=== PATIENT | male | born 2005 | race Two or more races ===

== ENCOUNTER 2024-10-24 18:23 | Inpatient (IN) | payer MEDICAID ==
[~2024-10-24] VITALS: Ht 177.8 cm; Wt 66.5 kg
--- NOTE | 2024-10-24 19:39 | ED.PDOC ---
Musculoskeletal HPI Comments 19 year old male presents to ER with complaints of left elbow pain x 3 days. Patient reports that he was diagnosed with a left elbow fracture at a Hospital in [place] 3 days ago and presents back to ER because he "doesn't have insurance" and isn't able to follow-up with an orthopedic doctor. He states the left elbow fracture occurred from falling on his left elbow while skate boarding and reports numbness/tingling to all fingers of left hand along with swelling to left elbow that's been ongoing x 3 days. He rates his current pain a 7/10 to left elbow with radiation towards his left hand. Patient presents to ER with a posterior long-arm splint to left arm and left arm sling applied. Denies any further symptoms/complaints Chief Complaint: Upper Extremity Time Seen by MD: 18:42 Primary Care Provider: NONE Reviewed Notes: Nurses Notes, Medications, Allergies Allergies: Coded Allergies: NO KNOWN ALLERGIES (Unverified , 10/24/24) Information Source: Patient Mode of Arrival: Ambulatory Past Medical History PAST MEDICAL HISTORY: Denies Surgical History: Denies all surgeries Family History Family History: Unknown Social History Smoker: Non-Smoker Alcohol: Denies ETOH Use Drugs: Denies Drug Use Lives In: Home Constitutional: denies: chills, diaphoresis, fatigue, fever, malaise, sweats, weakness, others EENTM: denies: blurred vision, double vision, ear bleeding, ear discharge, ear drainage, ear pain, ear ringing, eye pain, eye redness, hearing loss, mouth pain, mouth swelling, nasal discharge, nose bleeding, nose congestion, nose pain, photophobia, tearing, throat pain, throat swelling, voice changes, others Respiratory: denies: cough, hemoptysis, orthopnea, SOB at rest, shortness of breath, SOB with excertion, stridor, wheezing, others Cardiovascular: denies: chest pain, dizzy spells, diaphoresis, Dyspnea on exertion, edema, irregular heart beat, left arm pain, lightheadedness, palpitations, PND, syncope, others Gastrointestinal: denies: abdomen distended, abdominal pain, blood streaked bowels, constipated, diarrhea, dysphagia, difficulty swallowing, hematemesis, melena, nausea, poor appetite, poor fluid intake, rectal bleeding, rectal pain, vomiting, others Genitourinary: denies: burning, dysuria, flank pain, frequency, hematuria, incontinence, penile discharge, penile sore, pain, testicle pain, testicle swelling, urgency, others Neurological: reports: others (As stated in HPI) Musculoskeletal: reports: others (As stated in HPI) Integumetry: reports: others (As stated in HPI) Allergic/Immunocompromised: denies: Difficulty Healing, Frequent Infections, Hives, Itching, others Hematologic/Lymphatic: denies: anemia, blood clots, easy bleeding, easy bruising, swollen glands, others Endocrine: denies: excessive hunger, excessive sweating, excessive thirst, excessive urination, flushing, intolerance to cold, intolerance to heat, unexplained weight gain, unexplained weight loss, others Psychiatric: denies: anxiety, bipolar disorder, depression, hopeless, panic disorder, schizophrenia, sleepless, suicidal, others Physical Exam General Appearance: No Apparent Distress HEENT: PERRL/EOMI Neck: Full Range of Motion, Non-Tender, Normal Respiratory: Chest Non-Tender, Lungs Clear, No Accessory Muscle Use, No Respiratory Distress, Normal Breath Sounds Cardiovascular: No Murmur, No Gallop, Regular Rate/Rhythm Breast Exam: Deferred Gastrointestinal: NOT DONE Genitalia: Deferred Pelvic: Deferred Rectal: Deferred Extremities: Decreased range of motion (Left elbow), Normal capillary refill Musculoskeletal : Extremity Location: Elbow (TTP/moderate swelling to left elbow noted.) Neurologic: Alert, No Motor Deficits, Normal Affect, Normal Mood, No Sensory Deficits Cerebellar Function: Normal Reflexes: Normal Skin: Dry, Normal Color, Warm Peripheral Pulses: 2+ Radial (R), 2+ Radial (L), 2+ Brachial (R), 2+ Brachial (L) Lymphatic: No Adenopathy Was a procedure done? Was a procedure done?: No Sedation Sedation?: No Differential Diagnosis EXT Differential Diagnosis: Dislocation, Laceration, Neurovascular injury X-Ray, Labs, Meds, VS Vital Signs Date Time Temp Pulse Resp B/P (MAP) Pulse Ox O2 Delivery O2 Flow Rate FiO2 10/24/24 19:22 Room Air* 0 21 10/24/24 18:28 98.0 105 18 128/77 (94) 97 98.0 Lab Test 10/24/24 20:58 Range/Units White Blood Count 9.8 4.4-10.8 10^3/uL Red Blood Count 4.54 4.5-5.90 10^6/uL Hemoglobin 14.1 13.5-17.5 g/dL Hematocrit 40.8 L 41.0-53.0 % Mean Corpuscular Volume 90.0 80.0-100.0 fL Mean Corpuscular Hemoglobin 31.2 28.0-32.0 pg Mean Corpuscular Hemoglobin Concent 34.6 32.0-36.0 g/dL Red Cell Distribution Width 12.7 11.8-14.3 % Platelet Count 273 140-450 10^3/uL Mean Platelet Volume 7.5 6.9-10.8 fL Neutrophils (%) (Auto) 73.4 37.0-80.0 % Lymphocytes (%) (Auto) 18.0 10.0-50.0 % Monocytes (%) (Auto) 7.4 0.0-12.0 % Eosinophils (%) (Auto) 0.6 0.0-7.0 % Basophils (%) (Auto) 0.6 0.0-2.0 % Neutrophils # (Auto) 7.2 1.6-8.6 10 ^3/uL Lymphocytes # (Auto) 1.8 0.4-5.4 10 ^3/uL Monocytes # (Auto) 0.7 0-1.3 10 ^3/uL Eosinophils # (Auto) 0.1 0-0.8 10 ^3/uL Basophils # (Auto) 0.1 0-0.2 10 ^3/uL Nucleated Red Blood Cells 0.0 % Prothrombin Time 10.6 9.3-11.8 sec Prothrombin Time INR 1.00 0.9-1.15 Activated Partial Thromboplast Time 27.1 24.5-34.5 SEC Sodium Level 141 136-145 mmol/L Potassium Level 3.9 3.5-5.1 mmol/L Chloride Level 103 98-107 mmol/L Carbon Dioxide Level 28 20-31 mmol/L Anion Gap 10 5-15 Blood Urea Nitrogen 14 9-23 mg/dL Creatinine 1.03 0.700-1.30 mg/dL Glomerular Filtration Rate Calc 107 >90 mL/min BUN/Creatinine Ratio 13.6 10.0-20.0 Serum Glucose 94 74-106 mg/dL Calcium Level 10.5 H 8.7-10.4 mg/dL Total Bilirubin 0.6 0.2-1.0 mg/dL Aspartate Amino Transferase (AST) 20 13-40 U/L Alanine Aminotransferase (ALT) 16 7-40 U/L Alkaline Phosphatase 58 46-116 U/L Total Protein 7.6 5.7-8.2 g/dL Albumin 5.1 H 3.2-4.8 g/dL Plasma/Serum Blood Alcohol 3.4 <10 mg/dL PATIENT: RAFY CARRASCO VACCT: [id number]: [id number] : 2005 LOC: ER ROOM / BED: / AGE / SEX: 19 / M ADM STATUS: REG ER SERVICE 25 ORDERING PHYSICIAN: CARLOS RAMIREZ PROCEDURE(s): LELB3 - L ELBOW 3 VIEW XRAY REASON: left elbow pain, hx recent left elbow fracture ORDER NUMBER(s): [id number], ACCESSION NUMBER(s): [id number] EXAM: XY L ELBOW 3 VIEW XRAY REASON FOR EXAM: left elbow pain, hx recent left elbow fracture TECHNIQUE: 3 views of the left elbow are submitted for review. COMPARISON: None FINDINGS: The bones demonstrate grossly normal mineralization. There is acute, mildly-comminuted fracture through the olecranon process with approximately 2.6 cm distraction of the fracture fragments. Evaluation for joint effusion is degraded by the obliquity of the lateral view. There is severe soft tissue swelling about the elbow. IMPRESSION: Acute, mildly comminuted fracture through the olecranon process with approximately 2.6 cm distraction. ATED BY: GABRIEL DAVE MD DICTATED DATE/TIME: 10/24/242031 SIGNED BY: GABRIEL DAVE MD SIGNED DATE/TIME: 10/24/242031 CC: Left elbow x-ray reviewed Patient in left posterior long arm splint/left arm sling Patient neurovascularly intact with pain controlled Case and x-ray imaging reviewed and discussed with orthopedic Dr. Cedillo who states to admit patient, keep him NPO and plan on surgery tomorrow Pre-op labs/imaging ordered Patient verbalized understanding and agreeable with current plan of care Patient admitted to hospitalist for left elbow fracture Images Reviewed?: Images reviewed and evaluated by me Time of 1ST Reevaluation: 18:42 Reevaluation 1ST: N/A Patient Education/Counseling: Diagnosis, Treatment, Prognosis, Need For Follow Up Family Education/Counseling: Diagnosis, Treatment, Prognosis, Need For Follow Up Departure 1 Departure Time of Disposition: 21:02 Impression: Primary Impression: Olecranon fracture Qualified Codes: S52.022A - Displaced fracture of olecranon process without intraarticular extension of left ulna, initial encounter for closed fracture Disposition: 09 ADMITTED INPATIENT Condition: Stable Critical Care Note Critical Care Time?: No Stability Stability form required: No Heart Score Heart Score: Heart Score Response (Comments) Value History N/A 0 EKG N/A 0 Age N/A 0 Risk Factors N/A 0 Troponin N/A 0 Total 0 CARLOS RAMIREZ Oct 24, 2024 19:39
--- NOTE | 2024-10-24 20:34 | DVH ---
EXAM: XY L ELBOW 3 VIEW XRAY REASON FOR EXAM: left elbow pain, hx recent left elbow fracture TECHNIQUE: 3 views of the left elbow are submitted for review. COMPARISON: None FINDINGS: The bones demonstrate grossly normal mineralization. There is acute, mildly-comminuted fra cture through the olecranon process with approximately 2.6 cm distraction of the fracture fragments. Evaluation for joint effusion is degraded by the obliquity of the lateral view. There is severe soft tissue swelling about the elbow. IMPRESSION: Acute, mildly comminuted fracture through the olecranon process with approximately 2.6 cm distraction .
[2024-10-24 21:15] LABS: Hematocrit 40.8 % (41.0-53.0); Hemoglobin 14.1 g/dL (13.5-17.5); Mean Corpuscular Hemoglobin 31.2 pg (28.0-32.0); Mean Corpuscular Volume 90.0 fL (80.0-100.0); Nucleated Red Blood Cells % 0.0 %
[2024-10-24 21:30] LABS: INR 1.0 (0.9-1.15); Partial Thromboplastin Time 27.1 SEC (24.5-34.5); Prothrombin Time 10.6 sec (9.3-11.8)
[2024-10-24 21:31] LABS: Alanine Aminotransferase 16 U/L (7-40); Alkaline Phosphatase 58 U/L (46-116); Anion Gap 10 (5-15); BUN/Creatinine Ratio 13.6 (10.0-20.0); Blood Urea Nitrogen 14 mg/dL (9-23); Carbon Dioxide 28 mmol/L (20-31); Chloride 103 mmol/L (98-107); Glucose 94 mg/dL (74-106); Potassium 3.9 mmol/L (3.5-5.1); Sodium 141 mmol/L (136-145); Total Protein 7.6 g/dL (5.7-8.2)
[2024-10-24 21:32] LABS: Bilirubin, Total 0.6 mg/dL (0.2-1.0)
[2024-10-24 21:34] LABS: Albumin 5.1 g/dL (3.2-4.8); Calcium 10.5 mg/dL (8.7-10.4)
--- NOTE | 2024-10-24 21:37 | DVH ---
CHEST RADIOGRAPH Indication: pre-op Technique: Single frontal view of the chest was obtained COMPARISON: None FINDINGS: Lines and Tubes: None Lungs: Clear Pleura: No effusion. No pneumothorax. Cardiomediastinal contours: Unremarkable Bones: Unremarkable IMPRESSION: 1. No acute disease.
--- NOTE | 2024-10-24 21:58 | DVHHP2 ---
History of Present Illness History of Present Illness Patient is 19 years old male with no significant past medical history came with a complaint of left elbow pain. As per patient he has been having left elbow pain for last 3 days after he had a fall while electronic skateboarding, he bumped on a person and fell down and hurt his left elbow. Following fall he went to [facility] ER and he was discharged with the advice to follow up with the outpatient orthopedic surgeon for further evaluation and care because of insurance issue. As per family and patient he could not go to outpatient orthopedic surgeon as they did not have any insurance at the time. Today patient came with the complaint of ongoing pain in the left elbow, 10/12, constant, increased with movement. Denies any fever, chest pain, shortness of breath. Patient has a posterior long arm splint to the left arm and left arm sling applied. X-ray left elbow revealed- Acute, mildly comminuted fracture through the olecranon process with approximately 2.6 cm distraction. Past Medical History None Past Surgical History No surgical history Past Social History Denies smoking/alcoholism/drug abuse, lives with family Review of Systems Review of Systems Allergy- NKDA Patient was seen today at the bedside. Cardiovascular- deny acute chest pain or shortness of breath or cough or palpitation Respiratory denies cough or short of breath or wheezing Gastrointestinal- denies any rectal bleeding, nausea or vomiting Neurological- denies acute dysarthria, dysphagia, change in vision Psychiatry- denies depression or SI or HI Skin- denies acute rash or purpura Allergies: Coded Allergies: NO KNOWN ALLERGIES (Unverified , 10/24/24) Medications Current Medications Medications Dose Ordered Sig/Cale Route Start Time Stop Time Status Last Admin Dose Admin Sodium Chloride 10 ml Q8HR IV 10/24/24 22:00 UNV Acetaminophen 650 mg Q6HP PRN PO 10/24/24 22:00 UNV Morphine Sulfate 2 mg Q4HPRN PRN IV 10/24/24 22:00 UNV Exam Vital Signs Vital Signs Date Time Temp Pulse Resp B/P (MAP) Pulse Ox O2 Delivery O2 Flow Rate FiO2 10/24/24 19:22 Room Air* 0 21 10/24/24 18:28 98.0 105 18 128/77 (94) 97 98.0 Exam General examination- awake, alert, oriented HEENT- PEERLA, no acute nasal discharge Cardiovascular- S1-S2 audible, rate and rhythm regular, no murmur Respiratory- CTAB, no wheeze or rhonchi Gastrointestinal-nontender, bowel sound+. Nondistended Musculoskeletal-no acute joint swelling or tenderness or redness [id number] splint to left arm, palpable left radial arterial++ Neurological- cranial nerves intact, no acute dysarthria or dysphagia Psychiatry- denies depression or SI or HI Skin- no acute rash or purpura Labs/Xrays Labs Test 10/24/24 20:58 Range/Units White Blood Count 9.8 4.4-10.8 10^3/uL Red Blood Count 4.54 4.5-5.90 10^6/uL Hemoglobin 14.1 13.5-17.5 g/dL Hematocrit 40.8 L 41.0-53.0 % Mean Corpuscular Volume 90.0 80.0-100.0 fL Mean Corpuscular Hemoglobin 31.2 28.0-32.0 pg Mean Corpuscular Hemoglobin Concent 34.6 32.0-36.0 g/dL Red Cell Distribution Width 12.7 11.8-14.3 % Platelet Count 273 140-450 10^3/uL Mean Platelet Volume 7.5 6.9-10.8 fL Neutrophils (%) (Auto) 73.4 37.0-80.0 % Lymphocytes (%) (Auto) 18.0 10.0-50.0 % Monocytes (%) (Auto) 7.4 0.0-12.0 % Eosinophils (%) (Auto) 0.6 0.0-7.0 % Basophils (%) (Auto) 0.6 0.0-2.0 % Neutrophils # (Auto) 7.2 1.6-8.6 10 ^3/uL Lymphocytes # (Auto) 1.8 0.4-5.4 10 ^3/uL Monocytes # (Auto) 0.7 0-1.3 10 ^3/uL Eosinophils # (Auto) 0.1 0-0.8 10 ^3/uL Basophils # (Auto) 0.1 0-0.2 10 ^3/uL Nucleated Red Blood Cells 0.0 % Prothrombin Time 10.6 9.3-11.8 sec Prothrombin Time INR 1.00 0.9-1.15 Activated Partial Thromboplast Time 27.1 24.5-34.5 SEC Sodium Level 141 136-145 mmol/L Potassium Level 3.9 3.5-5.1 mmol/L Chloride Level 103 98-107 mmol/L Carbon Dioxide Level 28 20-31 mmol/L Anion Gap 10 5-15 Blood Urea Nitrogen 14 9-23 mg/dL Creatinine 1.03 0.700-1.30 mg/dL Glomerular Filtration Rate Calc 107 >90 mL/min BUN/Creatinine Ratio 13.6 10.0-20.0 Serum Glucose 94 74-106 mg/dL Calcium Level 10.5 H 8.7-10.4 mg/dL Total Bilirubin 0.6 0.2-1.0 mg/dL Aspartate Amino Transferase (AST) 20 13-40 U/L Alanine Aminotransferase (ALT) 16 7-40 U/L Alkaline Phosphatase 58 46-116 U/L Total Protein 7.6 5.7-8.2 g/dL Albumin 5.1 H 3.2-4.8 g/dL SEPSIS Sepsis Screen Date sepsis recognized/suspect: Oct 24, 2024 Time Sepsis recognized/suspect: 1827 Recent Procedure: No On Antibiotic Therapy: No Respiratory Rate >20: No Heart Rate >90: Yes Temp<36 C (96.8 F) or >38.3 C: No SBP <90 or MAP <65 mmHG: No New Acute Mental Status Change: No Is the patient on CPAP, BIPAP,: No Physician Orders L Elbow 3 View Xray (10/24/24 19:26) Electrocardigram (10/24/24 20:49) Chest Xray 1 View (10/24/24 20:49) Type And Screen (10/24/24 20:49) Npo (Nothing By Mouth) Diet (10/25/24 Breakfast) Admit (10/24/24 21:54) Code Status (10/24/24 21:54) Sodium Chloride Lock (Saline Lock Ns) (10/24/24 22:00) Complete Blood Count (10/25/24 04:00) Comprehensive Metabolic Panel (10/25/24 04:00) Acetaminophen Tablet (Tylenol Tablet) (10/24/24 22:00) Morphine Sulfate Injection (10/24/24 22:00) Notify Of Changes From Base (10/24/24 21:54) Pantoprazole Tablet (Protonix Tablet) (10/24/24 22:00) Pantoprazole Tablet (Protonix Tablet) (10/25/24 06:00) * Orthopedic Consult (10/24/24 21:56) Vital Signs Date Time Temp Pulse Resp B/P (MAP) Pulse Ox O2 Delivery O2 Flow Rate FiO2 10/24/24 19:22 Room Air* 0 21 10/24/24 18:28 98.0 105 18 128/77 (94) 97 98.0 Laboratory Tests Test 10/24/24 20:58 White Blood Count 9.8 10^3/uL (4.4-10.8) Assessment/Plan Assessment/Plan Assessment and plan # Inractable acute left elbow pain due Acute, mildly comminuted fracture through the left olecranon process, status post fall -continue pain medication as prescribed -pending orthopedic consult -on long-arm splint to the left arm and left arm sling # status post fall -continue current management NPO after midnight Goals of care, Code status full code ; discussed with >15 minutes PUD prophylaxis: Pantoprazole DVT prophylaxis: Patient ambulating Plan discussed with Dr. Morillo , nursing staff, Total time spent on patient evaluation, chart review, assessment and plan, discussion discussion >35 minutes Plan discussed with: Patient, Other (Mother, RN) My Orders Orders - JOSE ANTONIO VALENZUELA RESIDENT Procedure Category Date Status Time Admit ADMIT 10/24/24 Transmitted 21:54 Code Status CODE 10/24/24 Transmitted 21:54 Sodium Chloride Lock PHA 10/24/24 Logged (Saline Lock Ns) 22:00 Complete Blood Count LAB 10/25/24 Verified 04:00 Comprehensive LAB 10/25/24 Verified Metabolic Panel 04:00 Acetaminophen Tablet PHA 10/24/24 Logged (Tylenol Tablet) 22:00 Morphine Sulfate PHA 10/24/24 Logged Injection 22:00 Notify Of Changes ZACK 10/24/24 In Process From Base 21:54 Pantoprazole Tablet PHA 10/24/24 Transmitted (Protonix Tablet) 22:00 Pantoprazole Tablet PHA 10/25/24 Transmitted (Protonix Tablet) 06:00 * Orthopedic Consult CONS 10/24/24 Transmitted 21:56 Date of Service: Oct 24, 2024 Billing Provider: CLARE MORILLO MD Common Visit Codes: [id number] INP/OBS CARE (HIGH) Secondary Visit Codes: [id number] CARE PLAN 30 MINUTES JOSE ANTONIO VALENZUELA RESIDENT Oct 24, 2024 21:58
[2024-10-24] MEDS ORDERED: ACETAMINOPHEN 325 MG TAB PO PRN (22:00)
[2024-10-24] MEDS: PANTOPRAZOLE 40 MG TAB PO ONE (23:24)
[2024-10-24] MEDS: SODIUM CHLOR 0.9% PF (SALINE LOCK) 10ML VIAL/SYR IV SCH (23:24)
[2024-10-25] VITALS (7 sets, daily range): BP systolic 110–127; BP diastolic 56–72; PULSE 51–90; RESP 16–18; TEMP 97.1–98.7; O2SAT 96–100
[2024-10-25 03:53] LABS: Hematocrit 37.7 % (41.0-53.0); Hemoglobin 13.5 g/dL (13.5-17.5); Mean Corpuscular Hemoglobin 31.9 pg (28.0-32.0); Mean Corpuscular Volume 89.2 fL (80.0-100.0); Nucleated Red Blood Cells % 0.1 %
[2024-10-25 04:07] LABS: Alanine Aminotransferase 14 U/L (7-40); Albumin 4.6 g/dL (3.2-4.8); Alkaline Phosphatase 54 U/L (46-116); Anion Gap 11 (5-15); BUN/Creatinine Ratio 14.8 (10.0-20.0); Bilirubin, Total 0.5 mg/dL (0.2-1.0); Blood Urea Nitrogen 13 mg/dL (9-23); Calcium 9.9 mg/dL (8.7-10.4); Carbon Dioxide 25 mmol/L (20-31); Chloride 106 mmol/L (98-107); Glucose 102 mg/dL (74-106); Sodium 142 mmol/L (136-145); Total Protein 6.7 g/dL (5.7-8.2)
[2024-10-25 04:08] LABS: Potassium 3.5 mmol/L (3.5-5.1)
[2024-10-25] MEDS: MORPHINE SULFATE INJ 2 MG/ml SYRG IV PRN (04:37)
[2024-10-25] MEDS: SODIUM CHLORIDE 0.9% 1,000 ML IV SCH (05:39)
[2024-10-25] MEDS: PANTOPRAZOLE 40 MG TAB PO SCH (05:40)
--- NOTE | 2024-10-25 16:09 | DVH ---
EXAM: CT CT L ELBOW WO CONTRAST INDICATION: fracture EXAM DATE: 10/25/2024 02:19 PM COMPARISON: None TECHNIQUE: Multiple axial CT images of the left elbow were obtained using bone algorithm. Axial and c oronal reformatting was done. Bone and soft tissue windows were reviewed. Radiation Dose Information: CT Dose: CTDI volume is .1511.15 mGy. Dose-length product is 277.77 mGy*cm Findings/Impression: Moderately displaced comminuted fracture of the olecranon There is no evidence of dislocation, blastic, or lytic lesions. No radiopaque foreign bodies. Moderate soft tissue edema with small joint effusions.
--- NOTE | 2024-10-25 20:06 | DVHINCON2 ---
Consult Note Consult Consult Note reason for Consult: Evaluation and management of a left olecranon fracture following trauma. --- History of Present Illness: 19-year-old male who was admitted through the Emergency Department after sustaining a fall onto his left elbow while skateboarding x approx 4 days ago. Initially seen in [place] and recent followup(yesterday night at [facility]) ,He was evaluated by the ER team and diagnosed with a closed left olecranon process fracture. A posterior splint was placed for immobilization. Orthopedic surgery was consulted for definitive management. During my interview today, the patient reported pain well controlled by hospitalist as inpatient, No splint concerns, no other joint pain reported, Minimal intermittent, mild numbness and tingling radiating down the left upper extremity since his fall with no changes or worsening. He denied any worsening of symptoms, muscle weakness, or pain out of proportion. He lives independently, is alert and oriented 3, and denies any known cardiac or pulmonary history. He reports no routine drug use, though he occasionally vapes. No additional significant medical history was provided. --- Past Medical History: No chronic illnesses reported No current medications No history of anticoagulation use Up to date on tetanus per patient --- Review of Systems: Cardiac/Pulmonary: Denies chest pain, palpitations, shortness of breath Neurologic: Reports intermittent numbness/tingling left upper extremity; denies weakness or radiating pain Musculoskeletal: Left elbow pain only; denies other joint pain General: No fever, chills, or malaise --- Physical Exam: General: Alert, cooperative, in no acute distress Cardiopulmonary: Normal rate and rhythm, clear breath sounds Left Upper Extremity: Shoulder: Full range of motion, no tenderness Elbow: Posterior splint in place, localized tenderness over olecranon, mild swelling noted Wrist: Full range of motion Hand: Able to move all fingers; full motor function Neurovascular: Motor/Sensory: Median, radial, ulnar, PIN (posterior interosseous nerve), and AIN (anterior interosseous nerve) are grossly intact Capillary refill: <2 seconds Sensation: Intact throughout the hand and forearm --- Imaging: X-ray of left elbow: Revealed a displaced fracture of the olecranon process of the ulna. No elbow dislocation or air noted --- Assessment: 1. Displaced Left Olecranon Fracture Closed, traumatic injury following a fall. --- Plan: Case discussed with Dr. Piyush ECHAVARRIA Surgical fixation. patient is a candidate for open reduction and internal fixation (ORIF) of the left olecranon fracture. Intraoperatively, procedure may include: Hardware: plate and screws Possible triceps tendon repair if avulsed with the olecranon fragment Additional fixation or grafting as needed --- Surgical Discussion and Consent: The surgical procedure, including expected recovery, rehabilitation, and risks/benefits, was discussed in detail with the patient. Patient remains amenable to surgery. The following potential complications were reviewed: Infection Hardware irritation or failure Nonunion or malunion Need for hardware removal Nerve injury (ulnar, radial, PIN/AIN) Triceps tendon failure or weakness Anesthesia-related risks Loss of range of motion or residual pain Deep vein thrombosis or pulmonary embolism Patient understood the discussion and verbalized comprehension. [facility] will [facility] N[facility]. Consent for open reduction and internal fixation of the left olecranon fracture will be obtained by the inpatient nurse team, order in place. --- All questions were answered. Patient agrees with the plan and understands the need for surgical repair. Plan discussed with: Patient, Other (bedside nurse) Visit Coding Surgery Date of Service if different f: Oct 25, 2024 Billing Provider: HEIDI SPRING Surgery Visit Codes: 13354 - INP CONSULT <55 MIN HEIDI SPRING Oct 25, 2024 20:06
[2024-10-26] VITALS (7 sets, daily range): BP systolic 111–147; BP diastolic 66–89; PULSE 67–135; RESP 14–20; TEMP 97–98.4; O2SAT 97–100
[2024-10-26] MEDS ORDERED: ONDANSETRON HCL 4 MG/2 ML VIAL IV PRN (03:15)
[2024-10-26] MEDS: CELECOXIB 100 MG CAP PO ONE (14:20)
[2024-10-26] MEDS: GABAPENTIN 300 MG CAP PO ONE (14:20)
[2024-10-26] MEDS: ACETAMINOPHEN IV 1000 MG/100ML (10MG/ML) IV ONE (14:20)
[2024-10-26] MEDS ORDERED: fentaNYL CITRATE 100 MCG/2 ML VL ONE (14:48)
[2024-10-26] MEDS ORDERED: KETAMINE 50mg/ML 1ml syringe ONE (14:48)
[2024-10-26] MEDS ORDERED: PROPOFOL 10 MG/ML 20 ML IV ONE (15:04)
[2024-10-26] MEDS ORDERED: PHENYLEPHRINE HCL 10 MG/ML VL ONE (15:19)
[2024-10-26] MEDS ORDERED: SODIUM CHLORIDE LOCK 10 ML ONE (15:19)
[2024-10-26] MEDS: ceFAZolin 2 GM/D5W50ml 50 ML IV ONE (15:20)
[2024-10-26] MEDS: CLINDAMYCIN 600MG IV 50 ML IV ONE (15:20)
[2024-10-26] MEDS: CLINDAMYCIN 600MG IV 100 ML IV ONE (15:20)
[2024-10-26] MEDS ORDERED: HYDROmorphone HCL 2 MG/ML VL/or syr ONE (15:30)
--- NOTE | 2024-10-26 16:50 | DVHOP2 ---
Operative Report - 2 Report Details Date: 10/26/24 Preop Diagnosis: Left elbow comminuted displaced olecranon fracture Postop Diagnosis: Left elbow comminuted displaced olecranon fracture Surgeon: Nazario Cedillo MD Dairy Scientist: Bruna Bass, Physician Dairy Scientist Anesthesiologist: Dr Andujar Anesthesia: General Implant: Proximal ulna curved plate, ITS with home run proximal screw and distal bicortical screws Consent: The patient was informed of the risks and benefits of the procedure. These include but are not limited to complications of anesthesia, postoperative infection, incomplete relief of symptoms, recurrence of symptoms, damage to blood vessels, nerves and tendons, deep venous thrombosis, pulmonary embolism and possible need for repeat surgery in the future. Complications: None Estimated Blood Loss: 25 mL Indications for Surgery: The patient is a 19-year-old who presented to the emergency room with a history of elbow injury. Clinical and radiological evaluation demonstrated a completely displaced olecranon fracture. Nonoperative and operative management options were discussed and surgery was recommended. Benefits, risks and treatment alternatives were discussed with the him and his mom. He decided to proceed with the surgical option. Name of Procedure Performed Left olecranon open reduction and internal fixation with plate fixation Procedure Details Procedure Details: Procedure: The patient was identified in the preoperative holding area and the surgical site was marked. The consent was verified. He was brought into the operating room. He was placed supine on the operating table and general anesthesia was administered. He was then positioned laterally. Axillary roll was placed under the right arm 1. Patient Positioning: The patient was positioned lateral on a larios bag on the operating table with the left arm prepped and draped in the usual sterile fashion. 2. Tourniquet: A tourniquet was applied to the proximal left arm. 3. Incision: A longitudinal incision was made directly over the posterior aspect of the left elbow, centered over the olecranon. This was slightly lateral to avoid some abrasions that he had. This was curvilinear as well to avoid being on the olecranon directly 4. Dissection: The subcutaneous tissues were dissected, and the fracture site was exposed. The extent of the comminution was assessed, and the fracture fragments were carefully identified. Two small fragments were noted that had to be excised. 5. Reduction: The fracture fragments were carefully reduced using reduction clamps and pointed reduction forceps to restore the normal anatomy of the olecranon. A K-wire was inserted to hold the reduction temporarily in place. C-arm was used to assess the reduction was found to be satisfactory with less than 2 mm of step-off. 6. Plate Application: A pre-contoured locking compression plate was selected based on the fracture pattern and applied to the posterior aspect of the olecranon. The plate was secured with appropriate locking screws, ensuring adequate purchase in both proximal and distal fragments. 7. Fixation: Multiple locking and nonlocking screws were used to fix the plate to the bone, providing stable fixation of the fracture. The proximal screw was a home-run screw directed from the proximal hole into the central canal. One more locking screw was inserted proximally for excellent fixation. 8. Irrigation: The surgical site was thoroughly irrigated with copious amounts of normal saline. Ulnar nerve was palpated throughout the case to ensure that the dissection is sufficiently far away from it. 9. Wound Closure: The wound was closed in layers with interrupted sutures in the subcutaneous tissue, and a subcuticular stitch was used for the skin. 0 Vicryl was used to close the interval between the flexor carpi ulnaris and the extensor carpi ulnaris. Significant damage to these muscles was noted as well. The plate was placed over the triceps tendon with a split through the tendon to release te nsion. 10. Dressing: A sterile dressing was applied to the surgical site. 11. Tourniquet Release: The tourniquet was released, and hemostasis was achieved. 12. Immobilization: The patient's left arm was placed in a posterior splint to maintain the reductio n and provide stability. This was placed in 45 of flexion. Post-operative care: The patient will be monitored closely for any signs of infection, and pain management will be provided. Physical therapy will be initiated as appropriate to regain range of motion and strength. Final Note: The surgical procedure was performed without any intraoperative complications. The fracture was stabilized with a locking compression plate, and the patient tolerated the procedure well. Condition Good Disposition Still a Patient NAZARIO CEDILLO MD Oct 26, 2024 16:50
[2024-10-26] MEDS ORDERED: HYDROmorphone HCL 2 MG/ML VL/or syr IV PRN (17:15)
[2024-10-26] MEDS ORDERED: MEPERIDINE HCL (25 MG/ML) 1ML VIAL IV PRN (17:15)
[2024-10-26] MEDS ORDERED: ACETAMINOPHEN IV 1000 MG/100ML (10MG/ML) IV PRN (17:15)
--- NOTE | 2024-10-26 17:30 | DVH ---
EXAM: XY L ELBOW 2 VIEW XRAY, XY C ARM FLUOROSCOPY UP TO 60MIN HISTORY: LEFT ELBOW ORIF TECHNIQUE: Intraoperative radiographs of the left elbow were obtained. FLUOROSCOPY TIME: 50.8 seconds FLUOROSCOPY IMAGES: 14 TOTAL DOSE: 1.35 mGy COMPARISON: XY L ELBOW 3 VIEW XRAY on DOS: 10/24/24 FINDINGS/IMPRESSION: Refer to intraoperative report for further evaluation.
[2024-10-26] MEDS: ceFAZolin 1GM/50ML 50 ML IV SCH (18:21)
[2024-10-27 01:00] VITALS: BP 122/63; PULSE 106; RESP 19; TEMP 98.1; O2SAT 99
[2024-10-27] MEDS: KETOROLAC TROMETH 30 MG/ML 1ML VIAL IV ONE (04:28)
[2024-10-27 05:00] VITALS: BP 128/64; PULSE 92; RESP 18; TEMP 97.8; O2SAT 98
--- NOTE | 2024-10-27 07:24 | DVHPN2 ---
Progress Note - Dictate Date Seen: Oct 27, 2024 Medical Necessity Reason Pt with a Central, PICC or Fol: No Subjective Patient was lying comfortably in bed during my evaluation reports some postoperative elbow pain that is being well managed with the help of pain medication. Patient reports that he has some stiffness and discomfort to his elbow but notes that it is better since before surgery. Patient has remained in his splint. Patient is otherwise feeling well denying any other complaints or concerns during my evaluation. vital signs Vital Sign Date Time Temp Pulse Resp B/P (MAP) Pulse Ox O2 Delivery O2 Flow Rate FiO2 10/27/24 05:54 92 18 128/64 10/27/24 05:00 97.8 98 97.8 10/26/24 20:00 Room Air* 0 21 Total Intake and Output 10/26/24 10/26/24 10/27/24 15:00 23:00 07:00 Intake Total 100 ml 175 ml 800 ml Balance 100 ml 175 ml 800 ml medications Current Medications Medications Dose Ordered Sig/Cale Route Start Time Stop Time Status Last Admin Dose Admin Sodium Chloride 10 ml Q8HR IV 10/24/24 22:00 10/27/24 05:54 10 ML Acetaminophen 650 mg Q6HP PRN PO 10/24/24 22:00 Morphine Sulfate 2 mg Q4HPRN PRN IV 10/24/24 22:00 10/27/24 05:54 2 MG Pantoprazole Sodium 40 mg DAILY@0600 PO 10/25/24 06:00 10/27/24 05:43 40 MG Sodium Chloride 1,000 ml @ 100 mls/hr Q10H IV 10/25/24 04:45 10/26/24 20:45 100 MLS/HR Ondansetron HCl 4 mg Q6HPRN PRN IV 10/26/24 03:15 Lactated Ringer's 1,000 ml @ 100 mls/hr Q10H IV 10/26/24 17:15 objective A&O x4 in no acute distress Elbow range of motion grossly limited with pain on movement Dressing clean, dry, and intact Posterior long arm splint in place No distal edema or calf tenderness to palpation Neurovascularly intact with cap refill less than 2 seconds laboratory and microbiology Laboratory Tests 10/25/24 03:20 Test 10/25/24 03:20 Range/Units Serum Glucose 102 74-106 mg/dL Assessment/Plan Continue current management as well as pain control and advised patient to remain strictly in his posterior long arm splint until his follow up visit with our office in about 10-14 days for his 1st postoperative evaluation. I instructed the patient to take it easy over the next six weeks avoiding any running, jumping, or sports. Patient is otherwise feeling well denying any other complaints or concerns during my evaluation and is ready to go home. Patient may be considered for discharge home from an orthopedic standpoint. Plan discussed with: Patient HUNTER GARRISON Oct 27, 2024 07:24
[2024-10-27 07:56] LABS: Hematocrit 34.8 % (41.0-53.0); Hemoglobin 12.1 g/dL (13.5-17.5); Mean Corpuscular Hemoglobin 31.3 pg (28.0-32.0); Mean Corpuscular Volume 89.6 fL (80.0-100.0); Nucleated Red Blood Cells % 0.0 %
[2024-10-27 08:04] LABS: Anion Gap 10 (5-15); Carbon Dioxide 26 mmol/L (20-31); Chloride 104 mmol/L (98-107); Potassium 3.6 mmol/L (3.5-5.1); Sodium 140 mmol/L (136-145)
[2024-10-27 08:05] LABS: Calcium 9.4 mg/dL (8.7-10.4)
[2024-10-27 08:10] LABS: BUN/Creatinine Ratio 12.0 (10.0-20.0)
[2024-10-27 08:11] LABS: Blood Urea Nitrogen 9 mg/dL (9-23); Glucose 113 mg/dL (74-106)
[2024-10-27 08:15] VITALS: PULSE 87; RESP 17; O2SAT 96
[2024-10-27] MEDS: BUPIVACAINE 0.25% INJ 50ML VIAL ONE (08:16)
[2024-10-27] MEDS: ONDANSETRON HCL 4 MG/2 ML VIAL IV ONE (08:17)
[2024-10-27] MEDS: METOCLOPRAMIDE HCL 5MG/ml INJ 2ml VIAL IV ONE (08:17)
[2024-10-27] MEDS: LACTATED RINGER'S 1,000 ML IV SCH (08:17)
[2024-10-27 09:26] VITALS: BP 118/59; PULSE 87; RESP 17; TEMP 98.4; O2SAT 96
[2024-10-27 12:48] VITALS: BP 128/70; PULSE 81; RESP 18; TEMP 98.8; O2SAT 91
--- NOTE | 2024-10-27 12:48 | DVHPN2 ---
Reviewed: Care Plan, H&P, Labs, Medications, Previous Orders, Radiology Changes from previous H/P or p: No Changes General: Per HPI Objective Vitals Vital Signs Date Time Temp Pulse Resp B/P (MAP) Pulse Ox O2 Delivery O2 Flow Rate FiO2 10/27/24 11:59 81 18 128/70 10/27/24 09:26 98.4 96 98.4 10/27/24 08:15 Room Air* 0 21 Intake/Output Intake and Output 10/27/24 07:00 Intake Total 1075 ml Balance 1075 ml Intake Oral 800 ml IV Total 275 ml # Voids 3 General Appearance: Alert, Oriented X3 Cardiovascular: Regular rate, Normal S1 Abdomen: Normal bowel sounds, Soft Neuro: Normal gait, Normal speech Medications Current Medications Medications Dose Ordered Sig/Cale Route Start Time Stop Time Status Last Admin Dose Admin Sodium Chloride 10 ml Q8HR IV 10/24/24 22:00 10/27/24 05:54 10 ML Acetaminophen 650 mg Q6HP PRN PO 10/24/24 22:00 Morphine Sulfate 2 mg Q4HPRN PRN IV 10/24/24 22:00 10/27/24 11:30 2 MG Pantoprazole Sodium 40 mg DAILY@0600 PO 10/25/24 06:00 10/27/24 05:43 40 MG Sodium Chloride 1,000 ml @ 100 mls/hr Q10H IV 10/25/24 04:45 10/26/24 20:45 100 MLS/HR Ondansetron HCl 4 mg Q6HPRN PRN IV 10/26/24 03:15 Lactated Ringer's 1,000 ml @ 100 mls/hr Q10H IV 10/26/24 17:15 Laboratory Results Laboratory Tests 10/27/24 07:14 Chemistry Test 10/27/24 07:14 Calcium Level 9.4 mg/dL (8.7-10.4) Labs and/or images reviewed: Labs reviewed by me, Image(s) reviewed by me Assessment/Plan Assessment/Plan Patient is 19 years old male with no significant past medical history came with a complaint of left elbow pain. As per patient he has been having left elbow pain for last 3 days after he had a fall while electronic skateboarding, he bumped on a person and fell down and hurt his left elbow. Following fall he went to [facility] ER and he was discharged with the advice to follow up with the outpatient orthopedic surgeon for further evaluation and care because of insurance issue. As per family and patient he could not go to outpatient orthopedic surgeon as they did not have any insurance at the time. Today patient came with the complaint of ongoing pain in the left elbow, 7/10, constant, increased with movement. Denies any fever, chest pain, shortness of breath. Patient has a posterior long arm splint to the left arm and left arm sling applied. X-ray left elbow revealed- Acute, mildly comminuted fracture through the olecranon process with approximately 2.6 cm distraction. # Intractable acute left elbow pain due Acute, mildly comminuted fracture through the left olecranon process, status post fall -continue pain medication as prescribed -pending orthopedic consult -on long-arm splint to the left arm and left arm sling # status post fall -continue current management plan for surgery Plan discussed with: Patient Date of Service: Oct 25, 2024 Billing Provider: KIERAN MUNOZ DO Common Visit Codes: [id number] INP/OBS CARE(HIGH) KIERAN MUNOZ DO Oct 27, 2024 12:48
--- NOTE | 2024-10-27 12:52 | DVHPN2 ---
Reviewed: Care Plan, H&P, Labs, Medications, Previous Orders, Radiology Changes from previous H/P or p: No Changes General: Per HPI Objective Vitals Vital Signs Date Time Temp Pulse Resp B/P (MAP) Pulse Ox O2 Delivery O2 Flow Rate FiO2 10/27/24 11:59 81 18 128/70 10/27/24 09:26 98.4 96 98.4 10/27/24 08:15 Room Air* 0 21 Intake/Output Intake and Output 10/27/24 07:00 Intake Total 1075 ml Balance 1075 ml Intake Oral 800 ml IV Total 275 ml # Voids 3 General Appearance: Alert, Oriented X3 Cardiovascular: Regular rate, Normal S1 Abdomen: Normal bowel sounds, Soft Neuro: Normal gait, Normal speech Medications Current Medications Medications Dose Ordered Sig/Cale Route Start Time Stop Time Status Last Admin Dose Admin Sodium Chloride 10 ml Q8HR IV 10/24/24 22:00 10/27/24 05:54 10 ML Acetaminophen 650 mg Q6HP PRN PO 10/24/24 22:00 Morphine Sulfate 2 mg Q4HPRN PRN IV 10/24/24 22:00 10/27/24 11:30 2 MG Pantoprazole Sodium 40 mg DAILY@0600 PO 10/25/24 06:00 10/27/24 05:43 40 MG Sodium Chloride 1,000 ml @ 100 mls/hr Q10H IV 10/25/24 04:45 10/26/24 20:45 100 MLS/HR Ondansetron HCl 4 mg Q6HPRN PRN IV 10/26/24 03:15 Lactated Ringer's 1,000 ml @ 100 mls/hr Q10H IV 10/26/24 17:15 Laboratory Results Laboratory Tests 10/27/24 07:14 Chemistry Test 10/27/24 07:14 Calcium Level 9.4 mg/dL (8.7-10.4) Assessment/Plan Assessment/Plan Patient is 19 years old male with no significant past medical history came with a complaint of left elbow pain. As per patient he has been having left elbow pain for last 3 days after he had a fall while electronic skateboarding, he bumped on a person and fell down and hurt his left elbow. Following fall he went to [facility] ER and he was discharged with the advice to follow up with the outpatient orthopedic surgeon for further evaluation and care because of insurance issue. As per family and patient he could not go to outpatient orthopedic surgeon as they did not have any insurance at the time. Today patient came with the complaint of ongoing pain in the left elbow, 7/10, constant, increased with movement. Denies any fever, chest pain, shortness of breath. Patient has a posterior long arm splint to the left arm and left arm sling applied. X-ray left elbow revealed- Acute, mildly comminuted fracture through the olecranon process with approximately 2.6 cm distraction. # Intractable acute left elbow pain due Acute, mildly comminuted fracture through the left olecranon process, status post fall -continue pain medication as prescribed -pending orthopedic consult -on long-arm splint to the left arm and left arm sling # status post fall -continue current management plan for surgery today Plan discussed with: Patient Date of Service: Oct 26, 2024 Billing Provider: KIERAN MUNOZ DO Common Visit Codes: [id number] INP/OBS CARE(HIGH) KIERAN MUNOZ DO Oct 27, 2024 12:52
[2024-10-27] MEDS ORDERED: NAP500T PO (12:53)
--- NOTE | 2024-10-27 12:54 | DVHDS2 ---
Discharge Summary Date of Admission Oct 24, 2024 at 21:54 Date of Discharge: Oct 27, 2024 Labs/Diagnostic Data: Laboratory Results Test 10/27/24 07:14 10/25/24 08:02 10/25/24 03:20 10/24/24 20:58 White Blood Count 15.3 10^3/uL (4.4-10.8) Red Blood Count 3.88 10^6/uL (4.5-5.90) Hemoglobin 12.1 g/dL (13.5-17.5) Hematocrit 34.8 % (41.0-53.0) Mean Corpuscular Volume 89.6 fL (80.0-100.0) Mean Corpuscular Hemoglobin 31.3 pg (28.0-32.0) Mean Corpuscular Hemoglobin Concent 34.9 g/dL (32.0-36.0) Red Cell Distribution Width 12.5 % (11.8-14.3) Platelet Count 254 10^3/uL (140-450) Mean Platelet Volume 7.4 fL (6.9-10.8) Neutrophils (%) (Auto) 82.5 % (37.0-80.0) Lymphocytes (%) (Auto) 8.2 % (10.0-50.0) Monocytes (%) (Auto) 9.2 % (0.0-12.0) Eosinophils (%) (Auto) 0.0 % (0.0-7.0) Basophils (%) (Auto) 0.1 % (0.0-2.0) Neutrophils # (Auto) 12.6 10 ^3/uL (1.6-8.6) Lymphocytes # (Auto) 1.3 10 ^3/uL (0.4-5.4) Monocytes # (Auto) 1.4 10 ^3/uL (0-1.3) Eosinophils # (Auto) 0 10 ^3/uL (0-0.8) Basophils # (Auto) 0 10 ^3/uL (0-0.2) Nucleated Red Blood Cells 0.0 % Sodium Level 140 mmol/L (136-145) Potassium Level 3.6 mmol/L (3.5-5.1) Chloride Level 104 mmol/L (98-107) Carbon Dioxide Level 26 mmol/L (20-31) Anion Gap 10 (5-15) Blood Urea Nitrogen 9 mg/dL (9-23) Creatinine 0.75 mg/dL (0.700-1.30) Glomerular Filtration Rate Calc 132 mL/min (>90) BUN/Creatinine Ratio 12.0 (10.0-20.0) Serum Glucose 113 mg/dL (74-106) Calcium Level 9.4 mg/dL (8.7-10.4) Vitamin B12 Level 444 pg/mL (211-911) Vitamin D 25-Hydroxy 26.9 ng/mL (30.0-100) Folic Acid 13.39 ng/mL (>5.38) Total Bilirubin 0.5 mg/dL (0.2-1.0) Aspartate Amino Transferase (AST) 17 U/L (13-40) Alanine Aminotransferase (ALT) 14 U/L (7-40) Alkaline Phosphatase 54 U/L (46-116) Total Protein 6.7 g/dL (5.7-8.2) Albumin 4.6 g/dL (3.2-4.8) Thyroid Stimulating Hormone (TSH) 2.52 uIU/mL (0.55-4.78) Prothrombin Time 10.6 sec (9.3-11.8) Prothrombin Time INR 1.00 (0.9-1.15) Activated Partial Thromboplast Time 27.1 SEC (24.5-34.5) Plasma/Serum Blood Alcohol 3.4 mg/dL (<10) Other Laboratory Tests 10/27/24 07:14 Brief Hx & Hospital Course: Patient is 19 years old male with no significant past medical history came with a complaint of left elbow pain. As per patient he has been having left elbow pain for last 3 days after he had a fall while electronic skateboarding, he bumped on a person and fell down and hurt his left elbow. Following fall he went to [facility] ER and he was discharged with the advice to follow up with the outpatient orthopedic surgeon for further evaluation and care because of insurance issue. As per family and patient he could not go to outpatient orthopedic surgeon as they did not have any insurance at the time. Today patient came with the complaint of ongoing pain in the left elbow, 10/12, constant, increased with movement. Denies any fever, chest pain, shortness of breath. Patient has a posterior long arm splint to the left arm and left arm sling applied. X-ray left elbow revealed- Acute, mildly comminuted fracture through the olecranon process with approximately 2.6 cm distraction. # Intractable acute left elbow pain due Acute, mildly comminuted fracture through the left olecranon process, status post fall -continue pain medication as prescribed -on long-arm splint to the left arm and left arm sling # status post fall -continue current management s/p surgery pt to be discharged home with pain meds Condition at Discharge: Good Final Diagnosis/Problems List Left elbow comminuted displaced olecranon fracture Discharge Disposition: Home Discharge Instruct/Medications Diet: Cardiac 2g Na,low cholest Activity: No Restrictions, As Tolerated Scheduled Naproxen (Naprosyn Tablet), 1 TAB PO BID Discharge Statement: "Patient was advised to return to the ER or call 911 if any headaches, dizziness, shortness of breath, chest pain, abdominal pain, bleeding, fevers, or worsening of medical condition. Patient was counseled about treatment plan, medications, possible side effects, patientverbalized understanding. All questions were answered to the best of my ability. This discharge took greater then 30 minutes in planning, reviewing documentation, counseling the patient, and discussing with other team members." ASSESSMENT ASSESSMENT Assessment Left elbow comminuted displaced olecranon fracture Date of Service: Oct 27, 2024 Billing Provider: KIERAN MUNOZ DO Common Visit Codes: [id number] DISCH DAY >30min KIERAN MUNOZ DO Oct 27, 2024 12:54
[2024-10-27 14:24] VITALS: BP 128/70; PULSE 81; RESP 18; TEMP 37.1; O2SAT 91
== END 2024-10-27 15:05 | disposition home or self-care (01) | DRG 315 ==
LOC: ER 18:23 → OVERFLOW 21:54 → WEST WING 10-25 04:50
PROVIDERS: ADMIT Internal Medicine; ATTEND Internal Medicine
PROC: 0PSL04Z Reposition Left Ulna with Internal Fixation Device, Open Approach (ICD-10-PCS; principal; 2024-10-26 14:49)
DX: S52.022A Displaced fracture of olecranon process without intraarticular extension of left ulna, initial encounter for closed fracture (principal); V00.131A Fall from skateboard, initial encounter; Y92.89 Other specified places as the place of occurrence of the external cause; Y99.8 Other external cause status; Y93.51 Activity, roller skating (inline) and skateboarding
CPT/HCPCS: 36415; 71045; 73070; 73080; 73200; 76000; 80048; 80053; 80320; 82306; 82607; 82746; 84443; 85025; 85610; 85730; 86850; 86900; 86901; G0378; J0131; J1100; J1885; J2003; J2405; J2704; J3490